=== PATIENT | male | born 1945 | race Caucasian/White ===

== ENCOUNTER 2018-05-31 10:58 | Day surgery (SDC) | payer MEDICARE, BC ==
[~2018-05-31] VITALS: Ht 177.8 cm; Wt 77.3 kg
[~2018-05-31 10:58] MED LIST: AMOXICILLIN 25250 MG PO; ASPIRIN 32325 MG/TAB PO; ASPIRIN 81M81 MG/TA2 PO; CELEBREX 200MG200 MG PO; CIPRO 500MG TA500 MG PO; COLACE 100100 MG/CAP PO; FENTANYL 25 MCG TD; FLEXERIL 1010 MG/TAB PO; FLOMAX 0.40.4 MG/CAP PO; HYGROTON25 MG PO; LOPRESSOR 225 MG/TAB PO; LORTAB 7.5/5001 TAB PO; MOBIC 7.5MG7.5 MG PO; NITROSTAT0.4 MG/TAB SL; OXYCONTIN 10MG10 MG PO; PRINIVIL20 MG PO; RT ADVAIR HFA 1112 G IH
[2018-05-31] MEDS ORDERED: NORVASC 10MG10 MG PO (11:19)
[2018-05-31] MEDS ORDERED: PRINIVIL40 MG PO (11:20)
[2018-05-31] MEDS ORDERED: FLOMAX 0.40.4 MG/CAP PO (11:23)
[2018-05-31] MEDS ORDERED: LYRICA 100MG C100 M1 PO (11:24)
[2018-05-31 11:38] VITALS: BP 129/64; PULSE 73; TEMP 97.5
[2018-05-31 13:45] VITALS: BP 148/81; PULSE 70; TEMP 98.2
[2018-05-31 14:00] VITALS: BP 153/87; PULSE 73
[2018-05-31 14:15] VITALS: BP 131/72; PULSE 66
[2018-05-31 15:29] VITALS: BP 148/81; PULSE 70; TEMP 98.2
== END 2018-05-31 14:50 | disposition home or self-care (01) ==
LOC: SDCO 10:58
DX: N20.1 Calculus of ureter (principal); N40.1 Benign prostatic hyperplasia with lower urinary tract symptoms; R35.1 Nocturia; J44.9 Chronic obstructive pulmonary disease, unspecified; I25.10 Atherosclerotic heart disease of native coronary artery without angina pectoris; I10 Essential (primary) hypertension; F17.210 Nicotine dependence, cigarettes, uncomplicated; M10.9 Gout, unspecified; G89.29 Other chronic pain; Z99.81 Dependence on supplemental oxygen; Z96.641 Presence of right artificial hip joint; Z91.040 Latex allergy status; Z82.49 Family history of ischemic heart disease and other diseases of the circulatory system; Z80.49 Family history of malignant neoplasm of other genital organs
CPT/HCPCS: C1769; C2617; J0690; J2405; J2550; J2704; J3010; J7030; Q9967

== ENCOUNTER 2020-12-03 20:20 | Emergency (ER) | payer MEDICARE, BC ==
[~2020-12-03] VITALS: Ht 172.7 cm; Wt 77.3 kg
[~2020-12-03 20:20] MED LIST changes: +ANORO IH; +ASPIRIN E.C. 8181 MG PO; +ATROVENT I0.2 MG/1 M IH; +CARDIZEM CD 12120 MG PO; +ELIQUIS 5MG PO; +HYGROTON 2525 MG/TAB; +LEVAQUIN 750MG750 M1 PO; +LIPITOR 40MG TA40 MG PO; +LYRICA 100MG C100 M1 PO; +NORVASC 10MG10 MG PO; +PERFOROMIS20 MCG/2 M IH; +PLAVIX 75MG TAB75 MG PO; +PREDNISONE20 MG PO; +PRINIVIL40 MG PO; +PULMICORT0.5 MG/2 M IH; +ROXICODONE 55 MG/TAB PO; +VENTOLIN0.09 MG IH
[2020-12-03 20:37] VITALS: TEMP 98.2
[2020-12-03 21:20] LABS: BASO % 0.3 % (0.0-2.0); EOS # 0.1 (0.0-0.7); EOS % 0.9 % (0-4.0); GRAN # 8.8 (1.4-6.5); HEMATOCRIT 35.1 % (42.0-52.0); HEMOGLOBIN 11.7 g/dl (13.5-18.0); LYMPH # 1.8 (1.2-3.4); LYMPH % 15.6 % (20.0-51.0); MEAN CELL VOLUME 88 fl (80.0-100.0); MEAN CORPUSCULAR HEMOGLOBIN 30 pg (27.0-31.0); MEAN CORPUSCULAR HGB CONC 33 g/dl (33.0-37.0); MEAN PLATELET VOLUME 10.8 fl (7.4-10.4); MONO # 0.7 (0.1-0.6); MONO % 5.8 % (1.7-9.3); PLATELET COUNT 261 K/mm3 (130-400); RED BLOOD COUNT 3.97 M/mm3 (4.20-5.60); REDCELL DISTRIBUTION WIDTH-CV 13.6 % (11.5-14.5)
[2020-12-03 21:24] LABS: INR 1.3 (0.8-3.0); PROTHROMBIN TIME 14.4 SECONDS (9.7-12.8)
[2020-12-03 21:30] LABS: ALBUMIN 3.9 gm/dL (3.5-5.0); BILIRUBIN,TOTAL 0.3 mg/dL (0.0-1.0); CREATININE, serum 1.85 (0.66-1.25); POTASSIUM 4.5 mmol/L (3.4-5.0); TOTAL PROTEIN 7.1 gm/dL (6.4-8.2)
[2020-12-03 21:41] LABS: TROPONIN-I 0.034 ng/mL (0.000-0.035)
[2020-12-03 23:34] VITALS: BP 109/72; PULSE 90
== END 2020-12-03 23:34 | disposition home or self-care (01) ==
LOC: COL.ER 20:20
PROVIDERS: Nurse Practitioner
DX: S52.502A Unspecified fracture of the lower end of left radius, initial encounter for closed fracture (principal); R55 Syncope and collapse; I10 Essential (primary) hypertension; J44.9 Chronic obstructive pulmonary disease, unspecified; I25.10 Atherosclerotic heart disease of native coronary artery without angina pectoris; F17.200 Nicotine dependence, unspecified, uncomplicated; Z79.899 Other long term (current) drug therapy; Z79.02 Long term (current) use of antithrombotics/antiplatelets; Z79.01 Long term (current) use of anticoagulants; Z79.51 Long term (current) use of inhaled steroids; W17.89XA Other fall from one level to another, initial encounter
CPT/HCPCS: J3010

== ENCOUNTER → 2021-01-27 | Outpatient (CLI) | payer MEDICARE, BC | LOC: COL.RAD 10:16 | DX: G95.89 Other specified diseases of spinal cord (principal); Z98.890 Other specified postprocedural states ==

== ENCOUNTER → 2021-10-23 | Outpatient (CLI) | payer MEDICARE, BC | LOC: COL.RAD 12:27 | DX: D18.03 Hemangioma of intra-abdominal structures (principal); N20.0 Calculus of kidney | CPT/HCPCS: Q9967 ==

== ENCOUNTER 2024-01-03 19:54 | Emergency (ER) | payer MEDICARE, BC ==
[~2024-01-03] VITALS: Ht 177.8 cm; Wt 84.1 kg
[2024-01-03 20:03] VITALS: TEMP 98.3
[2024-01-03 20:35] LABS: BASO % 0.4 % (0.0-2.0); EOS # 0.2 K/mm3 (0.0-0.7); EOS % 1.8 % (0.0-4.0); GRAN # 6.8 K/mm3 (1.4-6.5); GRAN % 76.1 % (42.2-75.2); HEMATOCRIT 42.4 % (42.0-52.0); HEMOGLOBIN 13.7 g/dl (13.5-18.0); LYMPH # 1.3 K/mm3 (1.2-3.4); LYMPH % 14.4 % (20.0-51.0); MEAN CELL VOLUME 90 fl (80.0-100.0); MEAN CORPUSCULAR HEMOGLOBIN 29 pg (27-31); MEAN CORPUSCULAR HGB CONC 32 g/dl (33.0-37.0); MEAN PLATELET VOLUME 10.8 fl (7.4-10.4); MONO # 0.6 K/mm3 (0.1-0.6); PLATELET COUNT 192 K/mm3 (130-400); RED BLOOD COUNT 4.73 M/mm3 (4.20-5.60)
[2024-01-03 20:49] LABS: ALBUMIN 3.5 g/dL (3.4-4.8); BILIRUBIN,TOTAL 0.6 mg/dL (0.2-1.2); CREATININE, serum 1.09 mg/dL (0.72-1.25); POTASSIUM 4.2 mEq/L (3.5-4.5); TOTAL PROTEIN 7.2 g/dl (6.2-8.1)
[2024-01-03 20:55] LABS: TROPONIN-I 0.01 ng/mL (0.00-0.033)
[2024-01-03 21:50] VITALS: BP 181/90; PULSE 88
== END 2024-01-03 21:50 | disposition home or self-care (01) ==
LOC: COL.ER 19:54
PROVIDERS: Nurse Practitioner Primary Care
DX: R60.0 Localized edema (principal); F17.210 Nicotine dependence, cigarettes, uncomplicated